=== PATIENT | male | born 1985 | race Two or more races ===

== ENCOUNTER 2022-05-25 12:48 | Emergency (ER) | payer OTHER ==
[~2022-05-25] VITALS: Ht 167.6 cm; Wt 104.3 kg
[2022-05-25 13:11] VITALS: BP 127/94
[2022-05-25] MEDS ORDERED: FLUORESCEIN SOD OPTH TEST STRIP OP ONE (13:15)
[2022-05-25] MEDS ORDERED: TETRACAINE HCL 0.5% OPTH(EYE) SOLN 4ML RIGHTEYE ONE (13:15)
[2022-05-25] MEDS ORDERED: CIP03OS RIGHTEYE (13:52)
== END 2022-05-25 14:03 | disposition home or self-care (01) ==
LOC: ER 12:48
DX: S05.01XA Injury of conjunctiva and corneal abrasion without foreign body, right eye, initial encounter (principal); S05.8X1A Other injuries of right eye and orbit, initial encounter; Z79.2 Long term (current) use of antibiotics; X58.XXXA Exposure to other specified factors, initial encounter; Y93.89 Activity, other specified; Y92.89 Other specified places as the place of occurrence of the external cause; Y99.8 Other external cause status

== ENCOUNTER 2024-01-20 17:37 | Emergency (ER) | payer OTHER ==
[~2024-01-20] VITALS: Ht 167.6 cm; Wt 110.6 kg
[~2024-01-20 17:37] MED LIST: CIP03OS RIGHTEYE
[2024-01-20 23:16] VITALS: BP 145/94; PULSE 109; RESP 17; TEMP 98.1; O2SAT 97
[2024-01-20] MEDS ORDERED: ACET500T58 PO (23:19)
[2024-01-20 23:52] LABS: Urine Bacteria NONE SEEN /hpf (None Seen); Urine Blood Negative /uL (Negative); Urine Clarity Clear (Clear); Urine Color Yellow (Yellow); Urine Mucus FEW (None Seen); Urine Protein, UAD Negative (Negative); Urine Specific Gravity 1.019 (1.001-1.035); Urine Urobilinogen Normal (Negative); Urine WBC <1 /hpf (0 - 3)
== END 2024-01-20 23:59 | disposition home or self-care (01) ==
LOC: ER 17:37
DX: S39.011A Strain of muscle, fascia and tendon of abdomen, initial encounter (principal); N50.3 Cyst of epididymis; F17.210 Nicotine dependence, cigarettes, uncomplicated; F12.10 Cannabis abuse, uncomplicated; X50.0XXA Overexertion from strenuous movement or load, initial encounter; Y93.89 Activity, other specified; Y92.89 Other specified places as the place of occurrence of the external cause; Y99.8 Other external cause status
CPT/HCPCS: 76870; 81001